=== PATIENT | female | born 2000 | race Caucasian/White ===

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

== ENCOUNTER 2020-05-05 11:17 | Emergency (ER) | payer OTHER ==
[~2020-05-05] VITALS: Ht 167.6 cm; Wt 83.9 kg
[~2020-05-05 11:17] MED LIST changes: +ACETAMINOPHEN-1 EAC1 PO; +CEPHALEXIN500 MG PO; +TAMIFLU75 MG PO
== END 2020-05-05 11:55 | disposition home or self-care (01) ==
LOC: ED 11:17
DX: S61.012A Laceration without foreign body of left thumb without damage to nail, initial encounter (principal); W26.0XXA Contact with knife, initial encounter

== ENCOUNTER 2025-04-05 18:11 | Emergency (ER) | payer OTHER ==
[~2025-04-05] VITALS: Ht 167.6 cm; Wt 104.0 kg
[~2025-04-05 18:11] MED LIST changes: +CIPRO500 MG PO; +FLOMAX0.4 MG PO; +ONDANSETRON ODT8 MG PO; +PERCOCET 5-3251 EACH PO
[2025-04-05 18:40] LABS: BASOPHILS 0.4 % (0.1-1.2); EOSINOPHILS 0.8 % (0.7-5.8); LYMPHOCYTES 17.0 % (19.3-51.7); MCH 27.2 PG (25.6-32.2); MCHC 33.5 g/dL (32.2-35.5); MCV 81.2 fL (79.4-94.8); MONOCYTES 6.0 % (4.7-12.5); NEUTROPHILS 75.5 % (34.0-71.1); RBC 4.89 M/uL (3.93-5.22)
[2025-04-05] MEDS ORDERED: SODIUM CHLORIDE 0.9% 1,000 ML IV ONE (18:45)
[2025-04-05] MEDS ORDERED: KETOROLAC TROMETHAMINE 15 MG/ML VIAL IV ONE (18:45)
[2025-04-05 18:50] LABS: ALT (SGPT) 25.0 U/L (14-59); AST (SGOT) 14.0 U/L (15-37); GLOMERULAR FILTRATION RATE,EST 101.0 mL/min (>60); PROTEIN, TOTAL 7.5 g/dL (6.4-8.2); UREA NITROGEN 15.0 mg/dL (7-18)
[2025-04-05] MEDS ORDERED: MORPHINE SULFATE 4 MG/ML VIAL IV ONE (19:30)
[2025-04-05 19:43] LABS: BLOOD/HGB, URINE NEGATIVE (Negative); KETONE, URINE NEGATIVE (Negative); LEUK ESTERASE, URINE NEGATIVE (negative); NITRITE, URINE NEGATIVE (negative)
[2025-04-05] MEDS ORDERED: HYDROCODON-ACE1 EA10 PO (20:12)
[2025-04-05] MEDS ORDERED: HYDROCODONE BIT/ACETAMINOPHEN 5/325 MG 1 TAB HOME.PACK PO PRN (20:15)
[2025-04-05] MEDS ORDERED: ONDANSETRON 4 MG HOME.PACK SL ONE (20:15)
[2025-04-05 20:27] VITALS: BP 143/84
== END 2025-04-05 20:28 | disposition home or self-care (01) ==
LOC: ED 18:11
PROVIDERS: Emergency Medicine
DX: N13.2 Hydronephrosis with renal and ureteral calculous obstruction (principal); Z88.0 Allergy status to penicillin
CPT/HCPCS: 36415; 74177; 80053; 81003; 84702; 84703; 85025; 96361; 96374; 96375; 96376; 99284-25; A9270; J1885; J2270; J2405; J7030; Q9967